=== PATIENT | female | born 2000 | race Caucasian/White ===

== ENCOUNTER 2024-07-01 20:03 | Inpatient (IN) | payer OTHER, SELFPAY ==
[2024-07-01] MEDS: 0.9% Saline Lock 10 ML Syringe IV ×2 (20:00→20:32)
--- NOTE | 2024-07-01 20:05 | PCM.HP.OB ---
HPI - General General Date of Admission: 07/01/24 HPI Narrative KODY HAYWARD, is a 24 F at 38w2d who presents for induction of labor due to Gestational Hypertension with diastolic of 90 x 2. Denies any headache, scotoma, RUQ abdominal pain. No vaginal bleeding, leakage of fluid, or contractions. Maternal Data Information KIMBERLEY Calculator Estimated Delivery Date Method Current WG Current Estimate 07/13/24 Manual 38w 2d ROS Constitutional Constitutional: Reports systems reviewed and no addt'l complaints, except as documented; Denies headache(s) Eyes Eyes: Denies acute decrease in peripheral vision, blurry vision or change in vision ENT HEENT: Reports systems reviewed and no addt'l complaints, except as documented Cardiovascular Cardiovascular: Denies chest pain or dizziness Respiratory/Chest Respiratory/Chest: Denies cough, dyspnea, dyspnea on exertion, shortness of breath at rest or shortness of breath with exertion Gastrointestinal Gastrointestinal: Denies abdominal pain, diarrhea, nausea or vomiting Genitourinary Genitourinary: Denies abdominal discomfort Musculoskeletal Musculoskeletal: Denies limited range of motion Integumentary Integumentary: Reports systems reviewed and no addt'l complaints, except as documented Neurologic Neurologic: Reports systems reviewed and no addt'l complaints, except as documented Psychiatric Psychiatric: Reports systems reviewed and no addt'l complaints, except as documented Endocrine Endocrinology: Reports systems reviewed and no addt'l complaints, except as documented Hematologic/Lymphatic Hematologic/Lymphatic: Reports systems reviewed and no addt'l complaints, except as documented Allergic/Immunologic Allergic/Immunologic: Reports systems reviewed and no addt'l complaints, except as documented Physical Exam Const alert and oriented x3 General Appearance: cooperative Orientation / Consciousness: awake, oriented to person, oriented to place and oriented to time Exam Limitations: no limitations HEENT normocephalic Head and Scalp: normal to inspection, normocephalic and atraumatic Face and Sinus: normal facial exam Eyes General Eye: normal appearance of both eyes Neck full ROM Chest Chest: symmetrical chest wall rise Resp normal respiratory effort and normal air movement Auscultation: clear to auscultation bilaterally Cardio regular rate, regular rhythm, S1 normal heart sound, S2 normal heart sound, no murmurs, no rub, no gallops and no clicks GI normal to inspection, nondistended, normoactive bowel sounds and non-tender appearance of the vagina normal Bladder / Kidney Exam: no CVA tenderness Manual OB Exam: estimated gestational size appropriate, presentation cephalic, dilated 1 cm, effaced 50, station -3 and other #20 talley catheter inserted through cervix, 30ml NS instilled, tolerated well Back/Spine normal ROM Extremity normal to inspection and full ROM Skin no rashes or lesions noted Neuro oriented x3 and moves all extremities Sensorium / Orientation: awake, alert and oriented to person Motor Exam: clonus absent Deep Tendon Reflexes: Rt Patellar (L4): 2+ and Lt Patellar (L4): 2+ Labs Labs Labs: No Data to Display GC/CT negative HIV negative HepC negative HBsAG negative Rubella immune RPR negative GBS positive 1hr GCT normal Assessment & Plan (1) Gestational hypertension: (2) Encounter for induction of labor: (3) Obesity affecting : (4) Penicillin allergy: COMMENT: Hives (5) History of spontaneous : PLAN: Plan 1) Admit to labor and delivery 2) Routine labs and preeclampsia labs 3) Continuous EFM 4) Pain management upon request 5) Talley and cytotec for cervical ripening and then will start pitocin 6) GBS positive, PCN allergic, will give vancomycin, sensitives not completed. 7) Dr. Cano collaborative physician and notified of patient status, above assessment, and plan.
[2024-07-01 20:08] VITALS: PULSE 102; RESP 16; TEMP 36.7; O2SAT 98
[2024-07-01 20:13] VITALS: PULSE 104; O2SAT 97
[2024-07-01 20:18] VITALS: PULSE 104; O2SAT 97
[2024-07-01 20:22] VITALS: BMI 39.1
[2024-07-01 20:23] VITALS: PULSE 117; O2SAT 97
[2024-07-01 20:25] VITALS: BP 133/90; PULSE 103
[2024-07-01 20:31] LABS: Absolute Lymphocyte Count 2.44 X10^3/uL (0.83-4.51); Absolute Neutrophil Count 10.3 X10^3/uL (2.0-7.7); Basophil# 0.04 X10^3/uL; Basophil% 0.3 % (0-1); Eosinophil# 0.09 X10^3/uL; Eosinophils% 0.7 % (0-5); Hematocrit 35.9 % (37-47); Hemoglobin 12.5 g/dL (12.0-15.0); Lymphocyte # 2.44 X10^3/ul (0.83-4.51); Lymphocyte % 17.6 % (19-41); Mean Corp Hgb Conc 34.8 g/dL (32-36); Mean Corpuscular Hgb 31.2 pg (27.0-32.0); Mean Corpuscular Volume 89.5 fL (81-99); Monocyte# 0.75 X10^3/uL; Monocyte% 5.4 % (0-10); NRBC Flagged by Analyzer 0 % (0-5); Neutrophil # 10.26 X10^3/uL (2.7-7.7); Neutrophil % 74.1 % (47-70); Platelet Count 331 K/mm3 (150-450); RBC Distribution Width CV 13.6 % (11.6-14.6); RBC Distribution Width SD 44.8 fl (35.1-43.9); Red Blood Count 4.01 M/mm3 (4.2-5.4); White Blood Count 13.8 K/mm3 (4.4-11.0)
[2024-07-01 21:00] LABS: Syphilis Antibodies Non-reactive
[2024-07-01] MEDS: miSOPROStol 25 MCG TABLET PO (21:08)
[2024-07-01 21:09] LABS: AST(SGOT) 15 U/L (15-37); Alanine Aminotransfer ALT/SGPT 18 U/L (13-56); Creatinine, Serum 0.56 mg/dL (0.55-1.02); EST Glomerular Filtration Rate 144 mL/min (>60); Est Glom Filt Rate - Afr Amer 174 mL/min (>60); Estimated Creatinine Clearance 171.32 ml/min; Uric Acid 3.6 mg/dL (2.6-6.0)
[2024-07-01 21:54] LABS: Protein, Urine (Random) 36.9 mg/dL (<11.9); Protein:Creat Ratio 169 mg/g CRE (0-200)
[2024-07-01 22:27] VITALS: BP 139/84; PULSE 103
[2024-07-01 23:36] LABS: HIV - WCH Non-Reactive (Nonreactive); Rubella IgG Reactive (Nonreactive)
[2024-07-01 23:41] LABS: Hepatitis B Surface Antigen Non-Reactive (Nonreactive); Hepatitis C Antibody Non-Reactive (Nonreactive)
[2024-07-02] VITALS (60 sets, daily range): BP systolic 123–158; BP diastolic 61–92; PULSE 80–130; RESP 14–18; TEMP 36.3–37.3; O2SAT 79–99
[2024-07-02] MEDS: Lactated Ringers 1,000 ML 50 ML IV (01:26)
[2024-07-02] MEDS: Oxytocin 15 Units/NS 250ml 15 UNITS/250 ML IV.SOLN 2 UNITS IV (01:27)
[2024-07-02] MEDS: Vancomycin HCl 2,000 MG in 0.9% Normal Saline (500mL Bag) 500 ML 250 MG IV (01:38)
[2024-07-02] MEDS: Clindamycin 900 MG/50 ML BAG 75 MG IV ×2 (05:38→13:51)
--- NOTE | 2024-07-02 08:22 | PCM.PN.OB ---
Subjective Subjective Pt doing well. Coping with contraction pain. She offers no complaints this morning Objective Data Objective Data Vital Signs: Vital Signs Temp Pulse Resp BP Pulse Ox 97.9 F 110 H 16 131/70 H 97 07/02/24 07:19 07/02/24 07:19 07/02/24 07:19 07/02/24 07:19 07/02/24 07:19 Weight: 213 lb 14.4 oz Body Mass Index (BMI) 39.1 Intake & Output: Intake and Output for Last 24 Hours 06/30/24 07/01/24 07/02/24 23:59 23:59 23:59 Intake Total 683.26 / 683.26 Balance 683.26 / 683.26 Lab / Micro Data 07/01/24 20:00 07/01/24 20:40 Labs: Laboratory Results - last 24 hr 07/01/24 20:00: WBC 13.8 H, RBC 4.01 L, Hgb 12.5, Hct 35.9 L, MCV 89.5, MCH 31.2, MCHC 34.8, RDW Std Deviation 44.8 H, RDW Coeff of Misa 13.6, Plt Count 331, MPV 11.0, Immature Gran % (Auto) 1.900 H, Neut % (Auto) 74.1 H, Lymph % (Auto) 17.6 L, [place] % (Auto) 5.4, Eos % (Auto) 0.7, Baso % (Auto) 0.3, Absolute Neuts (auto) 10.3 H, Absolute Lymphs (auto) 2.44, Nucleated RBC % 0, Syphilis Total Ab Non-reactive, Hep Bs Antigen Non-Reactive, Hepatitis C Antibody Non-Reactive, HIV 1&2 Antibody Non-Reactive, Rubella IgG Antibody Reactive, Blood Type A POSITIVE, Antibody Screen NEGATIVE 07/01/24 20:40: Creatinine 0.56, Estim Creat Clear Calc 171.32, Est GFR (MDRD) Af Amer 174, Est GFR (MDRD) Non-Af 144, Uric Acid 3.6, AST 15, ALT 18 07/01/24 21:30: U Random Total Protein 36.9 H, Urine Creatinine 218.00, Protein/Creatinin Ratio 169 NST FHR Rate Baby A Baseline: 150 Variability:: Moderate Accelerations:: 15 x 15 Decelerations:: None NST Reactive:: Yes FHR Category:: Category I Uterine Activity:: ctx q 2 min Assessment & Plan (1) 38 weeks gestation of : (2) Obesity affecting : (3) Encounter for induction of labor: PLAN: Cvx /-2, head well applied. Discussed AROM with patient and she desired to proceed. AROM performed in usual fashion with return of a small amount of clear fluid. Category 1 tracing. Cont current management. (4) Gestational hypertension: (5) Penicillin allergy: COMMENT: [place]
[2024-07-02] MEDS: fentaNYL 100 MCG/2 ML Ampul IV (12:12)
[2024-07-02] MEDS: fentaNYL-bupivacaine (epidural) 100 ML BAG EPIDURAL ×2 (14:43→18:58)
[2024-07-02] MEDS: Lactated Ringers 1,000 ML 200 ML IV ×2 (14:46→19:51)
--- NOTE | 2024-07-02 18:24 | PCM.PN.OB ---
Subjective Subjective Pt comfortable with epidural. Objective Data Objective Data Vital Signs: Vital Signs Temp Pulse Resp BP Pulse Ox 97.6 F L 104 H 17 139/76 H 99 07/02/24 17:21 07/02/24 18:09 07/02/24 18:09 07/02/24 18:09 07/02/24 18:09 Weight: 213 lb 14.4 oz Body Mass Index (BMI) 39.1 Intake & Output: Intake and Output for Last 24 Hours 06/30/24 07/01/24 07/02/24 23:59 23:59 23:59 Intake Total 2062.19 / 2062.19 Output Total 900 / 900 Balance 1162.19 / 1162.19 Lab / Micro Data 07/01/24 20:00 07/01/24 20:40 Labs: Laboratory Results - last 24 hr 07/01/24 20:00: WBC 13.8 H, RBC 4.01 L, Hgb 12.5, Hct 35.9 L, MCV 89.5, MCH 31.2, MCHC 34.8, RDW Std Deviation 44.8 H, RDW Coeff of Misa 13.6, Plt Count 331, MPV 11.0, Immature Gran % (Auto) 1.900 H, Neut % (Auto) 74.1 H, Lymph % (Auto) 17.6 L, [place] % (Auto) 5.4, Eos % (Auto) 0.7, Baso % (Auto) 0.3, Absolute Neuts (auto) 10.3 H, Absolute Lymphs (auto) 2.44, Nucleated RBC % 0, Syphilis Total Ab Non-reactive, Hep Bs Antigen Non-Reactive, Hepatitis C Antibody Non-Reactive, HIV 1&2 Antibody Non-Reactive, Rubella IgG Antibody Reactive, Blood Type A POSITIVE, Antibody Screen NEGATIVE 07/01/24 20:40: Creatinine 0.56, Estim Creat Clear Calc 171.32, Est GFR (MDRD) Af Amer 174, Est GFR (MDRD) Non-Af 144, Uric Acid 3.6, AST 15, ALT 18 07/01/24 21:30: U Random Total Protein 36.9 H, Urine Creatinine 218.00, Protein/Creatinin Ratio 169 Physical Exam Const alert and no apparent distress General Appearance: comfortable Narrative: Cvx /-1, caput noted Assessment & Plan (1) 38 weeks gestation of : (2) Encounter for induction of labor: PLAN: S/p epidural for pain control. Cvx /-1, caput noted on exam. Category 1 tracing. Reassess in 2 hours for cervical change or sooner if needed. (3) Gestational hypertension: (4) Obesity affecting :
--- NOTE | 2024-07-02 22:13 | OB.VAGDELI_ITS ---
Assessment & Plan (1) 38 weeks gestation of : (2) Obesity affecting : (3) Encounter for induction of labor: (4) Gestational hypertension: Maternal Data Information KIMBERLEY Calculator Estimated Delivery Date Method Current WG Current Estimate 07/13/24 Manual 38w 3d Vaginal Delivery Maternal Presentation Maternal Presentation: Medically Indicated Induction Type of Induction: Pitocin, Zayas Bulb, Amniotomy and Cytotec Medical Reason for Induction: Gestational Hypertension Vaginal Delivery Information Procedure Performed: Spontaneous Vaginal Delivery Surgeon/Practitioner: Maude Levine Date of Procedure: 07/02/24 Pre-Procedure Diagnosis: 38 week gestation, gHTN, obesity Post-Procedure Diagnosis: As above Type of anesthesia: Epidural Special Medications: None Estimated Blood Loss: 100 mL Fluids Replaced: N/A Findings Description of procedure: Patient completed and pushing in dorsal lithotomy position. Head of infant delivered in MARILIA position. Anterior shoulder delivered with gentle downward trac tion, followed by the posterior shoulder and body without any excessive traction, force or delay. A vigorous VFI was delivered and placed on maternal abdomen. The cord was clamped and cut after a 60 second delay by the FOB. The placenta delivered with fundal massage, and Pitocin started. The placenta was normal appearing and intact with a 3VC. The uterus was explored x 1. Fundus firm and bleeding scant. Upon inspection, a left labial laceration was noted to be bleeding. A single figure of eight was placed using 3-0 Vicryl to achieve hemostasis. No other lacerations noted. A vaginal sweep performed. Sharp and sponge counts were correct. 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
[2024-07-02] MEDS: Oxytocin 15 Units/NS 250ml 15 UNITS/250 ML IV.SOLN 83 UNITS IV (22:25)
[2024-07-03] VITALS (9 sets, daily range): BP systolic 124–144; BP diastolic 73–87; PULSE 97–131; RESP 14–17; TEMP 36.2–36.8; O2SAT 97–99
[2024-07-03 06:43] LABS: Absolute Lymphocyte Count 2.03 X10^3/uL (0.83-4.51); Absolute Neutrophil Count 13.7 X10^3/uL (2.0-7.7); Basophil# 0.03 X10^3/uL; Basophil% 0.2 % (0-1); Eosinophil# 0.02 X10^3/uL; Eosinophils% 0.1 % (0-5); Hematocrit 30.4 % (37-47); Hemoglobin 10.1 g/dL (12.0-15.0); Lymphocyte # 2.03 X10^3/ul (0.83-4.51); Lymphocyte % 11.8 % (19-41); Mean Corp Hgb Conc 33.2 g/dL (32-36); Mean Corpuscular Hgb 30.3 pg (27.0-32.0); Mean Corpuscular Volume 91.3 fL (81-99); Mean Platelet Vol. 10.8 fl (6.2-12.0); Monocyte# 1.24 X10^3/uL; Monocyte% 7.2 % (0-10); NRBC Flagged by Analyzer 0 % (0-5); Neutrophil # 13.65 X10^3/uL (2.7-7.7); Neutrophil % 79.1 % (47-70); Platelet Count 243 K/mm3 (150-450); RBC Distribution Width CV 14.1 % (11.6-14.6); RBC Distribution Width SD 47.3 fl (35.1-43.9); Red Blood Count 3.33 M/mm3 (4.2-5.4); White Blood Count 17.3 K/mm3 (4.4-11.0)
[2024-07-03] MEDS: Benzocaine/Lanolin/Aloe Vera 85 GM Spray 1 SPRAY TOPICAL (08:51)
[2024-07-03] MEDS: Acetaminophen 500 MG Tablet 1000 MG PO (08:51)
[2024-07-03] MEDS: Senna/Docusate Sodium 1 Tablet PO (08:52)
--- NOTE | 2024-07-03 08:54 | PN.OBGYN_ITS ---
Subjective Subjective Denies chest pain or SOB. She feels well and is without complaints. Objective Data Objective Data Vital Signs: Vital Signs Temp Pulse Resp BP Pulse Ox O2 Del Method 98.2 F 130 H 16 144/84 H 99 Room Air 07/03/24 05:13 07/03/24 05:13 07/03/24 05:13 07/03/24 05:13 07/03/24 05:13 07/03/24 05:13 Oxygen Delivery Method Room Air Weight: 213 lb 14.4 oz Body Mass Index (BMI) 39.1 Intake & Output: Intake and Output for Last 24 Hours 07/01/24 07/02/24 07/03/24 23:59 23:59 23:59 Intake Total 3663.33 / 3663.33 250 / 250 Output Total 1200 / 1200 500 / 500 Balance 2463.33 / 2463.33 -250 / -250 Lab / Micro Data 07/03/24 06:34 07/01/24 20:40 Labs: Laboratory Results - last 24 hr 07/03/24 06:34: WBC 17.3 H, RBC 3.33 L, Hgb 10.1 L, Hct 30.4 L, MCV 91.3, MCH 30.3, MCHC 33.2, RDW Std Deviation 47.3 H, RDW Coeff of Misa 14.1, Plt Count 243, MPV 10.8, Immature Gran % (Auto) 1.600 H, Neut % (Auto) 79.1 H, Lymph % (Auto) 11.8 L, [place] % (Auto) 7.2, Eos % (Auto) 0.1, Baso % (Auto) 0.2, Absolute Neuts (auto) 13.7 H, Absolute Lymphs (auto) 2.03, Nucleated RBC % 0 Physical Exam Const alert, oriented x3 and no apparent distress HEENT normocephalic GI soft to palpation, non-tender and non-distended GI Narrative: fundus firm, mid & below umbilicus Extremity normal to inspection and no calf tenderness Assessment & Plan (1) Gestational hypertension: QUALIFIERS: Trimester: third trimester Qualified Code(s): O13.3 - Gestational [-induced] hypertension without significant proteinuria, third trimester COMMENT: PPD#1 PLAN: Plan Start labetalol 200mg tid for mildly elevated blood pressures. Patient is HDS with tachycardia to 130. She is asymptomatic and will monitor.
[2024-07-03] MEDS: Labetalol 200 MG Tablet PO ×3 (09:09→22:26)
[2024-07-03] MEDS: Ibuprofen 600 MG Tablet PO (20:00)
[2024-07-04 02:00] VITALS: BP 127/78; PULSE 81; RESP 15; TEMP 36.5; O2SAT 97
[2024-07-04 05:57] VITALS: BP 147/96; PULSE 85
[2024-07-04] MEDS: Labetalol 200 MG Tablet PO (05:58)
--- NOTE | 2024-07-04 07:34 | PCM.PN.OB ---
Subjective Subjective Denies complaints. Objective Data Objective Data Vital Signs: Vital Signs Temp Pulse Resp BP Pulse Ox O2 Del Method 97.7 F L 85 15 147/96 H 97 Room Air 07/04/24 02:00 07/04/24 05:57 07/04/24 02:00 07/04/24 05:57 07/04/24 02:00 07/04/24 02:00 Oxygen Delivery Method Room Air Weight: 213 lb 14.4 oz Body Mass Index (BMI) 39.1 Intake & Output: Intake and Output for Last 24 Hours 07/02/24 07/03/24 07/04/24 23:59 23:59 23:59 Intake Total 3663.33 / 3663.33 250 / 250 480 / 480 Output Total 1200 / 1200 500 / 500 Balance 2463.33 / 2463.33 -250 / -250 480 / 480 Lab / Micro Data 07/03/24 06:34 07/01/24 20:40 Physical Exam Const alert, oriented x3 and no apparent distress HEENT normocephalic GI soft to palpation, non-tender and non-distended GI Narrative: fundus firm, mid & below umbilicus Extremity normal to inspection and no calf tenderness Assessment & Plan (1) Gestational hypertension: QUALIFIERS: Trimester: third trimester Qualified Code(s): O13.3 - Gestational [-induced] hypertension without significant proteinuria, third trimester COMMENT: PPD#2 PLAN: Plan BP's improved but still some mild elevations on labetalol. Will increase to 300mg tid. Possible d/c home this evening.
[2024-07-04] MEDS: Labetalol 100 MG Tablet PO (08:00)
[2024-07-04] MEDS: Ibuprofen 600 MG Tablet PO ×2 (08:05→20:52)
[2024-07-04 09:02] VITALS: BP 137/88; PULSE 87; RESP 16; TEMP 36.2
--- NOTE | 2024-07-04 11:03 | CASEMGMT ---
Social Work Assessment Labor and Delivery Unit Patient Address: [address] [place] [address] [place] [address] Phone number: [phone] Date of Referral: 07/03/24 Time of Referral: 919? Referred By: Jaclyn Javed Date of Intervention: ??07/04/24 Time of Intervention:? 899 Reason for Referral:? anxiety Aida completed chart review and acknowledges social work consult due to maternal mental health history positive for anxiety. Aida presented to bedside and introduced self to mother of baby (MOB- Geovanna) and father of baby (FOB- Denominational). Aida explained reason for sw involvement and completed psychosocial assessment. History obtained from: medical records, MOB and FOB. Household composition: Currently residing in the family home is MOB and FOB. baby to be included in residence when ready for discharge. Parents deny any problems or concerns with housing, reporting it is safe and secure. Patient's parent/guardian status:? ?Parents have been together for three years after meeting each other at their old place of employment. This is first baby for both parents together. No concerns reported of domestic violence or intimate partner violence. Medical History: ?KEI is 24 year old female who is 1, para 0- now 1 following labor and delivery of . KEI received routine care during with [facility]. KEI presented to hospital for an induction of labor and delivered baby via vaginal delivery on 07/02/24 at 38 weeks gestation. Baby girl, named Nilesh Pollock, was born weighing 6lb 7oz with apgars of 8 and 9 at one and five minutes of life, respectfully. KEI states that she is breast feeding and will be followed by Dr. Skelton for pediatrics. Educational Status:? Both parents graduated from high school, no college education. Parents deny concerns with reading, learning or comprehension. Financial Status: Both parents are gainfully employed outside of the home. FOB works for the [employer] and MOB works for the [employer]. KEI states that she is able to take 12 weeks off of work and then has decided to not return to work after her maternity leave is over. Supplies: All necessary baby supplies obtained, including: car seat, safe sleep space, clothes, diapers and wipes. Childcare/Caregiver(s): MOB will be the primary caregiver to baby along with FOB when not at work. ? Transportation:?? Both parents have their drivers license and reliable means of transportation, no barriers. Programs/Agencies Involved: ???Parents are not connected to any community resources that assist them financially as they are over income. Children Services/Legal Issues:??? No history of children services involvement, no issues or concerns warranting referral to be made at this time. Behavioral Health Issues: ??Mental Health History:?FOB denies mental health history. MOB states that she has a history of anxiety, but denies that it has been something that she struggles with regularly. MOB denies requiring medication to help her manage her mental health symptoms. ?? Substance Use History:?Parents deny substance use prior to and during . ? Family History:???Parents deny family history of addiction/ substance use or significant mental health diagnoses. ?? Drug Screens: No drug screens observed during chart review Family/Social Stressors:? Parents deny any problems or concerns Support Systems: MOB identifies that both sets of grandparents are her biggest supports. Depression/Shaken Baby/Safe Sleeping: Aida educated MOB on signs and symptoms of baby blues and depression or anxiety. MOB states that she has heard these terms before, but was not sure what the symptoms looked like. Both parents receptive to learning. FOB states that if MOB were to struggle with her mental health during this period he would be able to recognize that and would know how to help and support her. Aida educated parents on shaken baby prevention and ABCs of safe sleep, parents express understanding. ASSESSMENT:? MOB and baby admitted following labor and delivery of . MOB was laying comfortably in bed while FOB observed sitting on couch and holding baby lovingly and appropriately. Both parents made and maintained eye contact and participated openly with completion of psychosocial assessment. MOB denies feeling anxious, sad or depressed at this time. MOB states that she feels comfortable talking to FOB about her feelings and emotions when she is struggling. Parents have all necessary baby supplies and natural supports available to them. PLAN:?? No other services requested or indicated. MOB and baby to be discharged when medically ready. Parents were provided literature regarding: signs and symptoms of baby blues and mood and anxiety disorders, Help Me Grow, shaken baby prevention, ABCs of safe sleep and a list of county resources that are available for them should any needs present themselves. Lucas Hooks, SUCTION WORKER, FIRE SAFETY MANAGER
[2024-07-04] MEDS: Labetalol 200 MG Tablet 300 MG PO ×2 (14:01→21:55)
[2024-07-04 14:58] VITALS: BP 129/80; PULSE 83; RESP 16; TEMP 35.7
[2024-07-04 20:51] VITALS: BP 158/83; PULSE 90; RESP 16; TEMP 36.6; O2SAT 97
[2024-07-04 23:01] VITALS: BP 150/86
[2024-07-05 04:55] VITALS: BP 152/83; PULSE 83; RESP 16; TEMP 36.5; O2SAT 96
[2024-07-05] MEDS: Labetalol 200 MG Tablet 300 MG PO ×3 (06:08→22:29)
[2024-07-05] MEDS: Acetaminophen 500 MG Tablet 1000 MG PO ×2 (06:08→20:00)
--- NOTE | 2024-07-05 06:58 | PCM.PN.CNM ---
Subjective Subjective Patient seen at bedside. Sitting up in chair at bedside. Denies any headache, vision changes, SOB, CP or RUQ pain. Ambulating and voiding without difficulty. Objective Data Objective Data Vital Signs: Vital Signs Temp Pulse Resp BP Pulse Ox O2 Del Method 97.7 F L 83 16 152/83 H 96 Room Air 07/05/24 04:55 07/05/24 04:55 07/05/24 04:55 07/05/24 04:55 07/05/24 04:55 07/05/24 04:55 Oxygen Delivery Method Room Air Weight: 213 lb 14.4 oz Body Mass Index (BMI) 39.1 Intake & Output: Intake and Output for Last 24 Hours 07/03/24 07/04/24 07/05/24 23:59 23:59 23:59 Intake Total 250 / 250 480 / 480 Output Total 500 / 500 Balance -250 / -250 480 / 480 Lab / Micro Data Attestation: I reviewed the patient's lab results. 07/03/24 06:34 07/01/24 20:40 ROS Eyes Eyes: Denies blurry vision, change in vision or spots in vision ENT HEENT: Denies dizziness or headache(s) Cardiovascular Cardiovascular: Denies abdominal pain, chest pain or dyspnea Respiratory/Chest Respiratory/Chest: Denies cough, dyspnea, shortness of breath at rest or shortness of breath with exertion Gastrointestinal Gastrointestinal: Denies abdominal pain, diarrhea or vomiting Genitourinary Genitourinary: Denies change in urinary stream, difficulty urinating or dysuria Musculoskeletal Musculoskeletal: Reports none Integumentary Integumentary: Denies rash Neurologic Neurologic: Denies dizziness, headache(s), memory loss or weakness Physical Exam Const alert and no apparent distress General Appearance: cooperative and comfortable Exam Limitations: no limitations HEENT normocephalic Eyes General Eye: normal appearance of both eyes Neck full ROM General: normal visual inspection Chest Chest: symmetrical chest wall rise Resp normal respiratory effort and normal air movement Effort and Inspection: symmetric chest movement Auscultation: clear to auscultation bilaterally Cardio regular rate and regular rhythm GI normal to inspection, nondistended, normoactive bowel sounds Back/Spine normal ROM Extremity full ROM and no calf tenderness General Extremity: normal exam except as noted Skin no rashes or lesions noted Neuro oriented x3 Speech: speech normal Psych mental status grossly normal Thought Process: normal thought process Assessment & Plan (1) Gestational hypertension: QUALIFIERS: Trimester: third trimester Qualified Code(s): O13.3 - Gestational [-induced] hypertension without significant proteinuria, third trimester COMMENT: PPD#3 (2) (spontaneous vaginal delivery): (3) Care and examination of lactating mother: PLAN: Plan Blood pressures elevated since yesterday and ranging from 152-158/83-86 Patient is asymptomatic Taking Procardia 300 mg PO TID Start Procardia 30 mg XR PO QD and continue to monitor today WIll be seen and evaluated later by Dr. Cornelio Cano involved with plan of care
[2024-07-05 08:00] VITALS: BP 147/89; PULSE 87; RESP 16; TEMP 36.2; O2SAT 97
[2024-07-05] MEDS: NIFEdipine 30 MG Tablet PO (08:51)
[2024-07-05] MEDS: Senna/Docusate Sodium 1 Tablet PO (08:55)
[2024-07-05] MEDS: Ibuprofen 600 MG Tablet PO (08:55)
[2024-07-05 11:10] VITALS: BP 150/84; PULSE 88; RESP 18; TEMP 36.5; O2SAT 97
[2024-07-05] MEDS: Ferrous Sulfate 325 MG Tablet PO (13:27)
[2024-07-05 13:40] VITALS: BP 141/81; PULSE 103; RESP 16; TEMP 36.2; O2SAT 96
[2024-07-05 17:24] VITALS: BP 121/77; PULSE 92; RESP 16; TEMP 37.1; O2SAT 95
[2024-07-05 19:50] VITALS: BP 123/82; PULSE 86; RESP 16; TEMP 36.4; O2SAT 96
[2024-07-06 01:18] VITALS: BP 136/85; PULSE 80; RESP 16; TEMP 36.6; O2SAT 97
[2024-07-06] MEDS: Labetalol 200 MG Tablet 300 MG PO (06:05)
--- NOTE | 2024-07-06 06:45 | PCM.PN.OB ---
Subjective Subjective Doing well. Ambulating and voiding without difficulty. Mild lochia. Breast feeding. BP improved with Procardia Does have a BP cuff at home. Reviewed precautions Objective Data Objective Data Vital Signs: Vital Signs Temp Pulse Resp BP Pulse Ox O2 Del Method 97.8 F 80 16 136/85 H 97 Room Air 07/06/24 01:18 07/06/24 01:18 07/06/24 01:18 07/06/24 01:18 07/06/24 01:18 07/06/24 01:18 Oxygen Delivery Method Room Air Weight: 97.023 kg Body Mass Index (BMI) 39.1 Intake & Output: Intake and Output for Last 24 Hours 07/04/24 07/05/24 07/06/24 23:59 23:59 23:59 Intake Total 480 / 480 Balance 480 / 480 Lab / Micro Data 07/03/24 06:34 07/01/24 20:40 ROS Constitutional Constitutional: Denies headache(s) Cardiovascular Cardiovascular: Denies chest pain or dyspnea Gastrointestinal Gastrointestinal: Denies nausea or vomiting Genitourinary Genitourinary: Denies dysuria Physical Exam Const alert, oriented x3 and no apparent distress General Appearance: cooperative and comfortable Eyes PERRL and EOMs intact bilaterally Resp normal respiratory effort GI soft to palpation and non-tender Uterus Palpation: uterus fundus firm ( below umbilicus) Extremity normal to inspection and full ROM General Extremity: edema bilateral (+2) Neuro oriented x3 and CN's II-XII intact bilaterally Psych mental status grossly normal Assessment & Plan (1) (spontaneous vaginal delivery): (2) Gestational hypertension: QUALIFIERS: Trimester: third trimester Qualified Code(s): O13.3 - Gestational [-induced] hypertension without significant proteinuria, third trimester PLAN: Plan Continue Procardia and labetalol. Needs BP heck in office on tuesday
--- NOTE | 2024-07-06 06:47 | PCM.DC.SUM ---
Providers Date of Admission: 07/01/24 Date of Discharge: 07/06/24 Primary Care Physician: Hilary King NP-C Reason For Visit: INDUCTION Diagnosis Discharge Diagnosis (1) (spontaneous vaginal delivery): Status: Acute Code(s): O80 - Encounter for full-term uncomplicated delivery (2) Gestational hypertension: Status: Acute Code(s): O13.9 - Gestational [-induced] hypertension without significant proteinuria, unspecified trimester Qualifiers: Trimester: third trimester Qualified Code(s): O13.3 - Gestational [-induced] hypertension without significant proteinuria, third trimester Plan Continue Procardia and labetalol. Needs BP heck in office on tuesday Medications at Discharge Home Medications ferrous sulfate 325 mg (65 mg iron) tablet (iron) 325 mg PO DAILY 07/01/24 vit no.95-ferrous fumarate 28 mg-folic acid 800 mcg tablet () 1 tab PO DAILY 07/01/24 labetalol 200 mg tablet 300 mg (1.5 x 200 mg) PO TID #90 tabs 07/06/24 nifedipine 30 mg tablet,extended release 24 hr 30 mg PO DAILY #30 tabs 07/06/24 Hospital Course Operations None Procedures None Summary of Care Provided Minutes Spent on Discharge: 20 Hospital Course: IOL for gestational HTN. . BP elevated started on labetalol ad then Procardia. Physical Exam Const alert, oriented x3 and no apparent distress General Appearance: cooperative and comfortable Eyes PERRL and EOMs intact bilaterally Resp normal respiratory effort GI soft to palpation and non-tender Uterus Palpation: uterus fundus firm ( below umbilicus) Extremity normal to inspection and full ROM Neuro oriented x3 and CN's II-XII intact bilaterally Psych mental status grossly normal Weight / BMI Weight Weight: 97.023 kg Body Mass Index (BMI) 39.1 ABG / Lab / Microbiology Data 07/03/24 06:34 07/01/24 20:40 D/C Instructions May resume sexual activity in: 6 weeks DC O2, CPAP, BIPAP Needs Home O2 Discharge instructions: No Please Follow Up With: Sharona Caballero MD When: Follow up with our office in 1-2 and 6 weeks or as needed. [phone] Meaningful Use Info Meaningful Use Meaningful Use Diagnoses (Choose all that apply): None applicable Ischemic Stroke Statin Dosing Therapy Reference: STATIN DOSE THERAPY REFERENCE: * Patients > 75 years receive moderate or high dose statin therapy. * Patients 75 years or YOUNGER should receive HIGH intensity statin dose unless contraindicated. You will be required to document reason for non-treatment if statin daily dose does not meet guidelines. HIGH DOSE STATIN THERAPY DAILY Atorvastatin > than or = to 40 mg Rosuvastatin > than or = to 20 mg Amlodipine + Atorvastatin > than or = to 2.5/40 mg Ezetimibe + Simvastatin 10/80 mg Simvastatin 80mg Discharge Plan Admission Admit Date/Time: 07/01/24 20:03 Primary Reason for Your Visit: GHTN Attending Provider: Jaclyn Javed Primary Care Provider: Hilary King Instructions Additional Instructions / Restrictions: Needs BP Check On Tuesday07/09/24 Discharge Orders/Prescriptions Prescriptions: New nifedipine 30 mg Tablet Extended Release 24hr 30 mg PO DAILY Qty: 30 1RF labetalol 200 mg Tablet 300 mg PO TID Qty: 90 1RF Continued PNV cmb#95-ferrous fumarate-FA [] 28 mg iron- 800 mcg tablet 1 tab PO DAILY ferrous sulfate [iron] 325 mg (65 mg iron) tablet 325 mg PO DAILY Discontinued aspirin 81 mg tablet,delayed release (DR/EC) 81 mg PO DAILY Referrals / Follow Up: Hilary King, [employer] [Primary Care Provider] - Disposition Disposition (needs filled in before D/C Order can be placed): Home, Self Care
[2024-07-06 07:35] VITALS: BP 139/80; PULSE 80; RESP 14; TEMP 36.6; O2SAT 96
[2024-07-06] MEDS: NIFEdipine 30 MG Tablet PO (10:12)
[2024-07-06 10:13] VITALS: RESP 16
== END 2024-07-06 10:50 | disposition home or self-care (01) | DRG 807 ==
PROVIDERS: Obstetrics & Gynecology; Admitting Provider Advanced Practice Midwife; PCP Nurse Practitioner Adult Health; Visit Provider Advanced Practice Midwife
DX: O13.4 Gestational [pregnancy-induced] hypertension without significant proteinuria, complicating childbirth (principal); Z37.0 Single live birth; O70.0 First degree perineal laceration during delivery; O99.214 Obesity complicating childbirth; Z3A.38 38 weeks gestation of pregnancy; Z88.0 Allergy status to penicillin; Z87.59 Personal history of other complications of pregnancy, childbirth and the puerperium
CPT/HCPCS: 59025; 59050; 82565; 82570; 84156; 84450; 84460; 84550; 85025; 86703; 86762; 86780; 86803; 86850; 86900; 86901; 87340; 93005; A4216